=== PATIENT | female | born 1960 | race Caucasian/White ===

== ENCOUNTER → 2021-06-21 10:48 | Outpatient (BNVA) | payer MEDICAID, SELFPAY | PROVIDERS: PCP Physician Assistant; Visit Provider Nurse Practitioner Family | DX: M79.7 Fibromyalgia (principal); M79.18 Myalgia, other site; M79.641 Pain in right hand; G89.29 Other chronic pain | CPT/HCPCS: 99202 ==

== ENCOUNTER → 2021-11-07 15:46 | Outpatient (BNVA) | payer MEDICAID, SELFPAY | PROVIDERS: PCP Physician Assistant; Visit Provider Nurse Practitioner Family | DX: M79.7 Fibromyalgia (principal); M79.641 Pain in right hand; M19.90 Unspecified osteoarthritis, unspecified site; G89.29 Other chronic pain | CPT/HCPCS: 99212 ==

== ENCOUNTER → 2022-03-30 11:41 | Outpatient (BNVA) | payer MEDICAID, SELFPAY | PROVIDERS: PCP Physician Assistant; Visit Provider Internal Medicine | DX: G89.29 Other chronic pain (principal); M79.7 Fibromyalgia; M19.019 Primary osteoarthritis, unspecified shoulder | CPT/HCPCS: 99212 ==

== ENCOUNTER → 2022-05-11 09:28 | Outpatient (BNVA) | payer MEDICAID, SELFPAY | PROVIDERS: PCP Physician Assistant; Visit Provider Internal Medicine | DX: G89.29 Other chronic pain (principal); M19.019 Primary osteoarthritis, unspecified shoulder; M79.641 Pain in right hand | CPT/HCPCS: 99212 ==

== ENCOUNTER → 2022-07-13 10:42 | Outpatient (BNVA) | payer OTHER, SELFPAY | PROVIDERS: PCP Physician Assistant; Visit Provider Internal Medicine | DX: M47.816 Spondylosis without myelopathy or radiculopathy, lumbar region (principal) | CPT/HCPCS: 99212 ==

== ENCOUNTER 2022-10-26 09:17 | Outpatient (AMB) | payer OTHER, SELFPAY ==
[2022-10-26 09:22] VITALS: BP 149/76; PULSE 90; RESP 16; O2SAT 93; BMI 22.8
--- NOTE | 2022-10-26 09:22 | A.OFFVIS_ITS ---
Intake Vital Signs 10/26/22 09:22 Height 5 ft 9 in Weight 154 lb 4 oz BMI 22.8 BP 149/76 H Blood Pressure Location Rt brachial Position Sitting Respiration 16 Pulse 90 Pulse Source Pulse Oximeter Pulse Oximetry (%) 93 Oxygen Delivery Method Room Air Intake Visit Reasons: Follow Up/Medication Discussion Allergies Penicillins Allergy (Mild, Verified 10/26/22 09:23) Agitated Sulfa (Sulfonamide Antibiotics) Allergy (Mild, Verified 10/26/22 09:23) Agitated HPI Follow Up/Medication Discussion HPI Details 62-year-old female presenting today for a follow-up for discussion of medication. She states that her shoulder pain is still bothersome. She requests another referral to a hand surgeon for right hand pain. She has not previously seen Dr. Echavarria. She has difficulty sleeping due to pain. She sleeps for about four hours a day. She is interested in trying ketoprofen. She has tried compounded pain cream which had to be discontinued due to lack of insurance coverage. She was taking Flexeril 10 mg QD with moderate benefit. She has a history of depression. She reports good relief from ketamine. Her mental health is improving. She noticed recent unintentional weight loss, which went from 159 lbs. to 154 lbs. [facility] Medical History (Updated 07/26/22 @ 13:14 by Ferny Hernandez MD) Generalized OA Vitamin D deficiency Review of Systems Const All systems reviewed & are unremarkable except as noted in HPI and below Physical Exam Vital Signs: Last Vital Signs Pulse 90 10/26/22 09:22 Resp 16 10/26/22 09:22 BP 149/76 H 10/26/22 09:22 Pulse Ox 93 10/26/22 09:22 Oxygen Delivery Method Room Air 10/26/22 09:22 BMI result Body Mass Index 22.8 General: Appears afebrile. Alert and oriented. Mood and affect appropriate. Follows and participates in conversation appropriately. Respiratory effort is unlabored. Able to transition from sit to stand unassisted. Ambulates with bilaterally normal heel strike and toe off. Results Reviewed Results Reviewed: No imaging is available for review. Assessment & Plan Assessment & Plan (1) Right hand pain: Code(s): M79.641 - Pain in right hand (2) Chronic pain: Code(s): G89.29 - Other chronic pain (3) Myofascial pain: Code(s): M79.18 - Myalgia, other site Plan A referral was provided to Dr. Echavarria for further evaluation and treatment of right basal joint arthritis. A refill of Flexeril 10 mg was provided to the patient. I explained to her that I am unable to prescribe oral ketoprofen given the drug's safety profile. I also explained to her that I am unable to help titrate her sedative/anxiolytic regimen for sleep aid and that she should seek help from a dedicated sleep clinic or psychiatry to help titrate that regimen. I once again offered interventional treatment options for her shoulder, low back and neck pain which she declined. She requested a prescription of tramadol so I informed her that we are not accepting patients for our chronic opioid program at this time. I advised her to touch base with her primary care provider regarding this prescription. She also requested a prescription for vitamin B12 injections, which I also recommended that she follow-up with her primary care physician about. Scribed for Dr. Hernandez by Abdiaziz Cunha, manager medical device, on 10/26/2022. I, Dr. Hernandez, have personally reviewed and agree with the information entered by the scribe. Orders: Referrals Orthopedics Referral M79.641 - Pain in right hand Medications: New cyclobenzaprine 10 mg PO BID PRN 60 tabs 11RF muscle spasm Coding Level of Care Code Est Pt Level 4 (30953) Diagnoses Right hand pain M79.641 Chronic pain G89.29 Myofascial pain M79.18
== END 2022-10-26 09:45 | disposition home or self-care (01) ==
PROVIDERS: PCP Physician Assistant; Visit Provider Internal Medicine
DX: M79.641 Pain in right hand (principal); G89.29 Other chronic pain; M79.18 Myalgia, other site
CPT/HCPCS: 99214

== ENCOUNTER → 2022-10-26 09:17 | Outpatient (BNVA) | payer OTHER, SELFPAY | PROVIDERS: PCP Physician Assistant; Visit Provider Internal Medicine ==

== ENCOUNTER 2022-12-05 10:51 | Outpatient (AMB) | payer OTHER, SELFPAY ==
[2022-12-05 11:15] VITALS: BMI 22.7
--- NOTE | 2022-12-05 11:15 | A.OFFVIS_ITS ---
Intake Vital Signs 12/05/22 11:15 Height 5 ft 9 in Weight 154 lb BMI 22.7 Intake Visit Reasons: Liquor Rectifier- Pain in right hand Intake Note: Ketty 62 yr old right hand dominant female presents today for her right hand pain. States pain is mainly on the base of the thumb and it radiates up to her elbow. She states that her pain can be from repetitive use of her hand. Having off and on numbness and tingling. Patient has tried injection in the past with no relief. Currently has concerns of her pain on her thumb mainly on the base of the thumb. Xrays updated in office. Allergies Penicillins Allergy (Mild, Verified 10/26/22 09:23) Agitated Sulfa (Sulfonamide Antibiotics) Allergy (Mild, Verified 10/26/22 09:23) Agitated HPI Liquor Rectifier- Pain in right hand HPI Details Ketty is a 62 year old right hand dominant woman who presents with complaints of right hand pain. 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 She follows with Pain Management for chronic pain in her shoulders, back, and neck. She complains of pain at the base of her right thumb and in the radial aspect of her right wrist & forearm. She says her pain is worse with repetitive use of her hand. She has worn thumb braces in the past with daytime activities but says hers are worn out. She reports no relief from prior steroid injections into her shoulders and other areas in the past at an outside clinic. She had questions about surgery and has been seen by Dr. Cardoza in the past who told her to contact the office when she is ready to proceed with surgery. She reports taking Aleve and aspirin for pain all over, but says she sometimes has trouble sleeping.. She says she has occasional numbness of the right hand. She says she had a NCS performed in [place] ~4-5 years ago, but does not have a copy with her. She want to know if I would call her doctor in [place] in talked to him. [place] and her . She reports having narcolepsy, anxiety, and depression. 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 Review of Systems Const All systems reviewed & are unremarkable except as noted in HPI and below Physical Exam Vital Signs: BMI result Body Mass Index 22.7 Const General: cooperative, healthy appearing and no acute distress Orientation/consciousness: patient oriented x3 HEENT Head: Yes normocephalic and Yes atraumatic Eyes EOM: EOMs intact bilaterally Resp Effort & Inspection: normal respiratory effort and able to speak in complete sentences Cardio Jugular venous distension: no JVD Skin General skin exam: turgor normal Rashes: no rashes Neuro General: patient oriented x3 Extrem Other: Evaluation of Right Upper Extremity: The patient is alert, oriented, and in no acute distress She had some difficulty keeping her discussion focused and was somewhat rambling. Neuro: Median, Ulnar, Radial nerves motor and sensory intact and sensation is normal to the tips of all digits Vascular: Cap refill brisk ROM: She can make a fist and extend all her digits No locking or catching Good thumb opposition without pain Good wrist ROM without pain Skin: No lacerations or abrasions. General: No Ecchymosis. No Erythema or evidence of infection. No swelling Not particularly tender over the basal joint + Shoulder sign No swelling or warmth She demonstrates Pain radiating up the radial aspect of her right wrist Mild tenderness over the 1st dorsal compartment. She is more tender to palpation over the 1st dorsal compartment compared to the basal joint Negative Otto test bilaterally Radiographs: 3 views of the right hand were taken and viewed by me today in clinic. they show no fractures or dislocations. She does have end-stage osteoarthritis at the basal joint of the right thumb with near complete loss of the joint space and some attenuation of the trapezium. . There is also some more mild arthritic changes in the IP joint of the thumb and some of the IP joints of the fingers, but this is again more mild Psych Appearance: grossly normal Affect: normal affect Attitude: cooperative Assessment & Plan Assessment & Plan (1) Osteoarthritis of carpometacarpal joint of right thumb: Code(s): M18.11 - Unilateral primary osteoarthritis of first carpometacarpal joint, right hand (2) Chronic pain: Code(s): G89.29 - Other chronic pain (3) Fibromyalgia: Code(s): M79.7 - Fibromyalgia (4) Right wrist pain: Code(s): M25.531 - Pain in right wrist Plan Assessment & Plan: 1. Complaint of right radial wrist pain Mild tendenress over the 1st drsal comartment Negative Otto test 1. Right Basal joint osteoarthritis Radioigraphsically significant However not particularly tender on exam Not clear that she is having significant pain in the basal joint of the thumb I educated her about this condition I discussed operative and non-operative treatment options She says she has not had relief from injections in her shoulders or other areas, and is not interested in a steroid injection for her hand pain. Again, minimal tenderness and no appreciable swelling or pain with axial loading. More tender over the 1st dorsal compartment than the basal joint, but negative Otto test. I am not recommending surgery at this time, I think we need to be cautious about surgery as I am not sure it is indicated in this patient at this time I discussed activity modification, she is to limit or avoid any heavy or r epetitive pinching or gripping activities She was fitted for a comfort cool brace to wear with daily activity She can follow up prn More than 60 minutes was spent taking the history, performing the exam, discussing treatment options with the patient and documenting the visit. Scribed for Kari Echavarria MD by Gallito Velasco, medical technologist, on 12/05/22 at 11:40 AM, EST. Orders: Orders XR hand RT min 3V Today M79.641 - Pain in right hand Coding Level of Care Code New Pt Level 4 (73289) Diagnoses Osteoarthritis of carpometacarpal joint of right thumb M18.11 Chronic pain G89.29 Fibromyalgia M79.7 Right wrist pain M25.531
== END 2022-12-05 12:16 | disposition home or self-care (01) ==
PROVIDERS: PCP Physician Assistant; Visit Provider Orthopaedic Surgery
DX: M18.11 Unilateral primary osteoarthritis of first carpometacarpal joint, right hand (principal); G89.29 Other chronic pain; M79.7 Fibromyalgia; M25.531 Pain in right wrist
CPT/HCPCS: 99205

== ENCOUNTER 2022-12-05 11:29 | Outpatient (REF) | payer OTHER, SELFPAY ==
--- NOTE | ~2022-12-05 | XR_ITS ---
EXAMINATION: XR HAND, RIGHT CLINICAL INFORMATION: Right hand pain. COMPARISON: None available. TECHNIQUE: PA, lateral, and oblique views of the right hand. FINDINGS: No acute fracture or dislocation. Normal carpal alignment. Severe joint space narrowing with subchondral sclerosis and bony remodeling as well as subchondral cystic change and marginal osteophytes at the 1st carpometacarpal joint. More moderate osteoarthritis at the triscaphe joint. Mild osteoarthritis at the 1st metacarpophalangeal and interphalangeal joint. No osseous erosion. No abnormal soft tissue calcification. XR/XR hand RT min 3V IMPRESSION: 1. Severe degenerative arthritis at the 1st carpometacarpal joint with more moderate degenerative arthritis at the triscaphe joint. 2. Mild degenerative arthritis at the 1st metacarpophalangeal and interphalangeal joints.
== END 2022-12-05 11:30 | disposition home or self-care (01) ==
LOC: HO.HOSX 11:29
PROVIDERS: Visit Provider Orthopaedic Surgery
DX: M18.11 Unilateral primary osteoarthritis of first carpometacarpal joint, right hand (principal); M79.7 Fibromyalgia; M25.531 Pain in right wrist
CPT/HCPCS: 73130

== ENCOUNTER 2023-01-04 11:36 | Outpatient (AMB) | payer OTHER, SELFPAY ==
--- NOTE | 2023-01-04 11:28 | A.OFFVIS_ITS ---
Intake Intake Visit Reasons: MEDICATION DISCUSSION/CONFIRMED Allergies Penicillins Allergy (Mild, Verified 10/26/22 09:23) Agitated Sulfa (Sulfonamide Antibiotics) Allergy (Mild, Verified 10/26/22 09:23) Agitated HPI MEDICATION DISCUSSION/CONFIRMED HPI Details 62-year-old female who presents today vi a tele-visit for a discussion of medication The patient requested a refill of her compounded cream today. She states she has to pay about $200 at the OTC pharmacy. She requests a letter of medical necessity for this cream. She is currently living [place] housing. The patient also requested a prescription for ketoprofen orally. 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 Assessment & Plan Assessment & Plan (1) Chronic pain: Code(s): G89.29 - Other chronic pain Plan The patient requested a prescription for ketoprofen. I informed her about the potential adverse effects of ketoprofen, and I encouraged her to read about those adverse effects. If the patient is still insistent on receiving a prescription for ketoprofen in the future, we can do a trial with a low dose. I will refill the compound cream prescription today for the patient.?A letter was provided upon her request stating that she finds this cream helpful for her symptoms. Scribed for Dr. Hernandez by Abdiaziz Cunha, medical massage therapist, on 01/04/2023. I, Dr. Hernandez, have personally reviewed and agree with the information entered by the scribe. Telehealth Telehealth Location of provider rendering services: practice address Location of patient: address on file Patient Identification confirmed using: Name, : Yes Telehealth method: voice only Patient verbally consented to treatment: Yes Patient verbally consented to billing insurance company: Yes Patient informed of any privacy concerns related to visit: Yes Minutes spent on Phone/Video with Pt.: 15 Coding Level of Care Code Tele Est Pt Level 3 (97435) Diagnoses Chronic pain G89.29
== END 2023-01-04 11:36 | disposition home or self-care (01) ==
LOC: HO.PMC 11:36
PROVIDERS: PCP Physician Assistant; Visit Provider Internal Medicine
DX: G89.29 Other chronic pain (principal)
CPT/HCPCS: 99213

== ENCOUNTER → 2023-01-04 11:36 | Outpatient (BNVA) | payer OTHER, SELFPAY | PROVIDERS: PCP Physician Assistant; Visit Provider Internal Medicine ==

== ENCOUNTER 2024-06-19 12:24 | Outpatient (AMB) | payer OTHER, SELFPAY ==
--- NOTE | 2024-06-19 12:26 | MHC.OFFVIS ---
Vital Signs 06/19/24 12:28 Height 5 ft 6.5 in Weight 147 lb BMI 23.4 BP 175/81 H Blood Pressure Location Rt brachial Position Sitting Respiration 16 Pulse 96 Pulse Source Pulse Oximeter Pulse Oximetry (%) 91 L Oxygen Delivery Method Room Air Intake Visit Reasons: Medication Discussion/ruben from 05/15 Publications Designer Required: No Allergies Penicillins Allergy (Mild, Verified 06/19/24 12:29) Agitated Sulfa (Sulfonamide Antibiotics) Allergy (Mild, Verified 06/19/24 12:29) Agitated Medication List - Last Reconciled 06/19/24 by Velma Evans LPN albuterol sulfate 90 mcg/actuation (ProAir HFA) 2 puffs PO Q6H armodafinil 150 mg PO DAILY budesonide-formoterol 160-4.5 mcg/actuation inhalation clonazepam 0.5 mg PO clonidine HCl 0.1 mg PO DAILY cyclobenzaprine 10 mg PO TID PRN esketamine (Spravato) mg intranasal estradiol 0.01%(0.1mg/gram) grams vaginal 3XW Gel mattress overlay As directed irbesartan 300 mg PO DAILY lorazepam 0.5 mg PO DAILY PRN oxybutynin chloride ER mg PO HPI HPI Medication Discussion/ruben from 05/15: Details: History of Present Illness The patient is a 63-year-old female presenting with chronic toe pain. She reports that the pain has persisted since her last visit and involves possible nerve issues associated with a bunion and previous ankle surgery. It resembles past gout episodes but is confined to the left toe, differing from prior experiences. Despite surgical interventions to address abnormal toenail growth, the problem persists. Pain is exacerbated by standing and relieved minimally by interventions such as soaking and hot/cold applications. Current management with ketamine cream provides some relief but does not fully alleviate the condition. The patient mentions past diagnostic testing indicating spinal cracks which might be contributing to her symptoms. She connects nerve damage from an older ankle surgery to her current pain. The patient's history also includes shoulder replacements, which may link to her neck and back discomfort. She has had a variety of pharmacological treatments for pain but prefers limited medication use due to side effects experienced, such as gastrointestinal troubles. This affects her overall functionality and quality of life. Pain Description - Onset and Timing: Persistent since the last office visit. - Quality and Character: Burning sensation, similar to but distinct from gout. - Primary Location: Left toe, with associated bunion. - Radiation: Possible involvement from past ankle surgery and potential nerve irritation. - Exacerbating Factors: Being on feet, at night affecting sleep. - Alleviating Factors: Ketamine cream provides some relief; soaking and hot/cold applications minimally effective. - Interference: Inhibits wearing regular shoes, impacts daily activities and sleep. Physical Exam Results - Tests and Diagnostics: Prior tests indicate spinal cracks, possibly contributing to nerve irritation. Pain Management - Affect: Pain significantly impacts daily life and quality of sleep, leading to discomfort and frustration. - Analgesia: Current use of ketamine cream; past use of gabapentin and possibly Lyrica. - Adverse Effects: Previous adverse reactions to medications like Lyrica; gastrointestinal upset possibly linked to current pain management. - Activities of Daily Living: Difficulty wearing regular shoes, pain impacts functionality and sleep. - Aberrant Drug Related Behaviors: None reported or observed during the visit. 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 Flexeril will be prescribed to address associated muscle spasms. Because she has a history of adverse effects from medications, careful monitoring and minimal use of additional pharmacologic interventions are suggested. Potential future tests, like nerve conduction studies, may be considered based on her ongoing symptoms and response to this treatment plan. Patient was informed and verbally consented to the use of an ambient scribe for clinic note documentation during this visit. Discussion Notes I discussed with the patient that her chronic toe pain may involve prior nerve damage and bunion issues, and the potential relation to spinal nerve problems. We reviewed current treatments, including the ketamine cream and Flexeril, with a focus on managing her symptoms conservatively. Potential adverse effects of medications were noted, advising caution due to her previous negative experiences. The patient agreed to this plan and understands the need for periodic evaluation of her condition, including possible future diagnostic studies such as nerve conduction tests. She was reminded to remain observant of any side effects and communicate any changes in her condition promptly. Patient Instructions - Continue using ketamine cream as it has provided some relief. - Use Flexeril (cyclobenzaprine) as prescribed, monitoring for any adverse reactions. - Avoid extended periods on feet; employ hot and cold treatments as needed. - Report any increased pain, changes in symptoms, or medication side effects. - Maintain regular follow-ups as needed, and consult for any significant changes in condition. Medications: Refilled cyclobenzaprine 10 mg PO TID PRN 60 tabs 3RF muscle spasm Coding Level of Care Code Est Pt Level 3 (07363) Diagnoses Lumbar spondylosis M47.816 Chronic pain G89.29
[2024-06-19 12:28] VITALS: BP 175/81; PULSE 96; RESP 16; O2SAT 91; BMI 23.4
== END 2024-06-19 13:09 | disposition home or self-care (01) ==
LOC: HO.PMC 12:25
PROVIDERS: PCP Physician Assistant; Visit Provider Internal Medicine
DX: M47.816 Spondylosis without myelopathy or radiculopathy, lumbar region (principal); G89.29 Other chronic pain
CPT/HCPCS: 99213

== ENCOUNTER → 2024-06-19 12:24 | Outpatient (BNVA) | payer OTHER, SELFPAY | PROVIDERS: PCP Physician Assistant; Visit Provider Internal Medicine | DX: M47.816 Spondylosis without myelopathy or radiculopathy, lumbar region (principal); G89.29 Other chronic pain | CPT/HCPCS: 99212 ==

== ENCOUNTER 2024-08-03 10:08 | Outpatient (AMB) | payer OTHER, SELFPAY ==
--- NOTE | 2024-08-03 10:14 | A.OFFVIS_ITS ---
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: No Allergies Penicillins Allergy (Mild, Verified 08/03/24 10:17) Agitated Sulfa (Sulfonamide Antibiotics) Allergy (Mild, Verified 08/03/24 10:17) Agitated Medication List - Last Reconciled 08/03/24 by Velma Evans LPN albuterol sulfate 90 mcg/actuation (ProAir HFA) 2 puffs PO Q6H armodafinil 150 mg PO DAILY budesonide-formoterol 160-4.5 mcg/actuation inhalation clonazepam 0.5 mg PO clonidine HCl 0.1 mg PO DAILY cyclobenzaprine 10 mg PO TID PRN esketamine (Spravato) mg intranasal estradiol 0.01%(0.1mg/gram) grams vaginal 3XW Gel mattress overlay As directed irbesartan 300 mg PO DAILY lorazepam 0.5 mg PO DAILY PRN oxybutynin chloride ER mg PO HPI HPI Procedure Discussion: Details: Presented to discuss upcoming EMG but visit cut short due to need to leave prematurely to catch her ride back. Will be undergoing EMG/NCS in the near future. 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 Coding Level of Care Code Est Pt Level 1 (82179) Diagnoses Numbness of foot R20.0
[2024-08-03 10:16] VITALS: BP 172/78; PULSE 94; RESP 16; O2SAT 92; BMI 24.0
== END 2024-08-03 10:54 | disposition home or self-care (01) ==
LOC: HO.PMC 10:08
PROVIDERS: PCP Physician Assistant; Visit Provider Internal Medicine
DX: R20.0 Anesthesia of skin (principal)

== ENCOUNTER → 2024-08-03 10:08 | Outpatient (BNVA) | payer OTHER, SELFPAY | PROVIDERS: PCP Physician Assistant; Visit Provider Internal Medicine | DX: R20.0 Anesthesia of skin (principal) | CPT/HCPCS: 99211 ==

== ENCOUNTER 2024-08-26 14:53 | Outpatient (REF) | payer OTHER, SELFPAY ==
--- NOTE | 2024-08-26 14:56 | EMG_ITS ---
Chief complaint: Patient referred for left lower extremity testing. However patient says symptoms are worse in the right side described as cramping. Patient admits to both pain and numbness both feet. She denies lower back pain though. History of gout. Reason for referral: Evaluate for radiculopathy Referred by: Dr. Hernandez Procedure done: Bilateral lower extremity NCS/EMG Precautions and/or limitations: None The limb temperature was monitored continuously and remained between 32-36 degrees C during the performance of the NCS. Nerve Conduction Studies Anti Sensory Summary Table ?Stim Site NR Onset (ms) Norm Onset (ms) Peak (ms) Norm Peak (ms) O-P Amp (?V) Norm O-P Amp Site1 Site2 Delta-0 (ms) Dist (cm) Blake (m/s) Norm Blake (m/s) Left Sural Anti Sensory (Lat Mall) Calf NR <4.0 >5.0 Calf Lat Mall 14.0 Right Sural Anti Sensory (Lat Mall) Calf NR <4.0 >5.0 Calf Lat Mall 14.0 Motor Summary Table ?Stim Site NR Onset (ms) Norm Onset (ms) O-P Amp (mV) Norm O-P Amp iAmp (mV) Amp (1st) (%) Site1 Site2 Delta-0 (ms) Dist (cm) Blake (m/s) Norm Blake (m/s) Left Peroneal Motor (Ext Dig Brev) Ankle ? 4.0 <4.0 3.3 >2.5 4.2 100.0 Ankle Ext Dig Brev 4.0 0.0 B Fib ? 11.5 2.8 3.6 84.8 B Fib Ankle 7.5 33.5 45 >40 Poplt ? 12.4 3.0 3.9 90.9 Poplt B Fib 0.9 5.0 56 >40 Left Tibial Motor (Abd Henriquez Brev) Ankle ? 4.8 <5 3.6 >2.5 5.0 100.0 Ankle Abd Henriquez Brev 4.8 0.0 Knee ? 13.8 3.1 3.8 86.1 Knee Ankle 9.0 42.0 47 >40 EMG ?Side Muscle Nerve Root Ins Act Fibs Psw Amp Dur Poly Recrt Int Pat Comment Right AbdHallucis MedPlantar S1-2 Nml Nml Nml Nml Nml 0 Nml Complete Right AntTibialis Dp Br Peron L4-5 Nml Nml Nml Nml Nml 0 Nml Complete Right PostTibialis Tibial L5, S1 Nml Nml Nml Nml Nml 0 Nml Complete Right MedGastroc Tibial S1-2 Nml Nml Nml Nml Nml 0 Nml Complete Right VastusMed Femoral L2-4 Nml Nml Nml Nml Nml 0 Nml Complete Left AbdHallucis MedPlantar S1-2 Nml Nml Nml Nml Nml 0 Nml Complete Left AntTibialis Dp Br Peron L4-5 Nml Nml Nml Nml Nml 0 Nml Complete Left PostTibialis Tibial L5, S1 Nml Nml Nml Nml Nml 0 Nml Complete Left MedGastroc Tibial S1-2 Nml Nml Nml Nml Nml 0 Nml Complete Left VastusMed Femoral L2-4 Nml Nml Nml Nml Nml 0 Nml Complete Paraspinal EMG ?Side Muscle Nerve Root Ins Act Fibs Psw Comment Right Lumbar Upper Rami Nml Nml Nml Right Lumbar Mid Rami Nml Nml Nml Right Lumbar Lower Rami Incr 1+ 1+ Left Lumbar Upper Rami Nml Nml Nml Left Lumbar Mid Rami Nml Nml Nml Left Lumbar Lower Rami Nml Nml Nml FINDINGS: Bilateral sural nerves absent response. All other nerves tested were within normal. Concentric needle EMG was performed in selected muscles of the bilateral lower extremity and lumbar paraspinals. Study revealed signs of electric abnormalities as shown in the table above. Right lower lumbar paraspinals showed increased insertional activity, PSWs and fibrillations. IMPRESSION: 1. This is an abnormal study. 2. Possible peripheral neuropathy, evidenced by absent bilateral sural nerves. 3. Cannot completely rule out a right lower lumbar radiculopathy, evidenced by denervation seen in right lower lumbar paraspinals only. 4. There is no electrodiagnostic evidence for left peroneal neuropathy, tibial neuropathy, or lumbosacral plexopathy. CLINICAL COMMENT: Further clinical correlation recommended. Thank you for your kind referral. Lolita Love MD, QING Board Certified, [place] [employer] (ABPMR) Board Certified, [place] [employer] (ABEM) CODIN [id number] x 2 MTDD
== END 2024-08-26 14:54 | disposition home or self-care (01) ==
LOC: HO.NEURO 14:53
PROVIDERS: Visit Provider Internal Medicine
DX: R20.0 Anesthesia of skin (principal)
CPT/HCPCS: 95886; 95908

== ENCOUNTER → 2024-08-26 14:56 | Outpatient (BNV) | payer OTHER, SELFPAY | PROVIDERS: Visit Provider Physical Medicine & Rehabilitation | DX: R20.0 Anesthesia of skin (principal); R20.2 Paresthesia of skin | CPT/HCPCS: 95886; 95908 ==